=== PATIENT | male | born 1970 | race Two or more races ===

== ENCOUNTER 2016-10-15 09:10 | Emergency (ER) | payer MEDICAID ==
[2016-10-15 09:23] VITALS: BP 129/89
== END 2016-10-15 11:51 | disposition home or self-care (01) ==
LOC: ER 09:10
DX: G62.9 Polyneuropathy, unspecified (principal); E11.9 Type 2 diabetes mellitus without complications
CPT/HCPCS: 93971

== ENCOUNTER 2018-12-06 15:30 | Emergency (ER) | payer MEDICAID ==
[~2018-12-06] VITALS: Ht 175.3 cm; Wt 104.3 kg
[2018-12-06 15:41] VITALS: BP 144/89
[2018-12-06] MEDS ORDERED: ALBUTEROL SULF 2.5 MG/0.5ML(0.5%) NEB SOLN NEB ONE (16:30)
[2018-12-06] MEDS ORDERED: IPRATROPIUM BROM 0.5 MG/2.5ML INH SOL NEB ONE (16:30)
== END 2018-12-06 17:01 | disposition home or self-care (01) ==
LOC: ER 15:32
DX: J20.9 Acute bronchitis, unspecified (principal); F41.9 Anxiety disorder, unspecified
CPT/HCPCS: 71046; 94640; 99283; J7611; J7644